=== PATIENT | male | born 1995 | race Native Hawaiian/Other Pacific Islander ===

== ENCOUNTER 2021-08-07 10:24 | Emergency (ER) | payer OTHER ==
[2021-08-07 10:35] VITALS: BP 146/98
--- NOTE | 2021-08-07 11:59 | ED Physician Documentation ---
PD HPI PED ILLNESS - Stated complaint Stated Complaint: CONGESTION - Chief complaint Chief Complaint: Heent PD PAST MEDICAL HISTORY - Present Medications Home Medications: Ambulatory Orders Medication Instructions Recorded Confirmed No Known Home Medications 08/07/21 08/07/21 - Allergies Allergies/Adverse Reactions: Allergies Allergy/AdvReac Type Severity Reaction Status Date / Time No Known Drug Allergies Allergy Verified 08/07/21 10:32 - Social History Does the pt smoke?: No Smoking Status: Never smoker Results - Vitals Vitals: Vital Signs - 24 hr 08/07/21 10:32 Temperature 36.6 C Heart Rate 86 Respiratory 12 Rate Blood Pressure 146/98 H O2 Saturation 96 Oxygen O2 Source Room air
--- NOTE | 2021-08-07 12:13 | ED Physician Documentation ---
PD HPI URI - Stated complaint Stated Complaint: CONGESTION - Chief complaint Chief Complaint: Heent - Additional information Additional information: Patient is 26-year-old male presenting to the emergency department with cough, congestion ongoing x4 days. Denies chest pain, shortness of breath. Multiple sick contacts at home. Reports was tested for Covid last weekend which was negative. Review of Systems Ten Systems: 10 systems reviewed and negative Constitutional: denies: Fever Eyes: denies: Loss of vision Ears: denies: Loss of hearing Nose: denies: Rhinorrhea / runny nose Throat: denies: Dental pain / toothache Cardiac: denies: Chest pain / pressure Respiratory: reports: Cough. denies: Dyspnea GI: denies: Abdominal Pain, Nausea, Vomiting PD PAST MEDICAL HISTORY - Present Medications Home Medications: Ambulatory Orders Medication Instructions Recorded Confirmed Benzonatate [Tessalon] 200 mg PO TID PRN #30 cap 08/07/21 - Allergies Allergies/Adverse Reactions: Allergies Allergy/AdvReac Type Severity Reaction Status Date / Time No Known Drug Allergies Allergy Verified 08/07/21 10:32 - Social History Does the pt smoke?: No Smoking Status: Never smoker PD ED PE NORMAL - Vitals Vital signs reviewed: Yes - General General: Alert and oriented X 3 - HEENT HEENT: Atraumatic, PERRL - Neck Neck: Supple, no meningeal sign, No JVD - Cardiac Cardiac: RRR, No gallop - Respiratory Respiratory: No respiratory distress - Abdomen Abdomen: Normal bowel sounds, Soft - Male Male : Deferred - Rectal Rectal: Deferred - Back Back: No CVA TTP - Extremities Extremities: No deformity - Neuro Neuro: Alert and oriented X 3 Results - Vitals Vitals: Vital Signs - 24 hr 08/07/21 10:32 Temperature 36.6 C Heart Rate 86 Respiratory 12 Rate Blood Pressure 146/98 H O2 Saturation 96 Oxygen O2 Source Room air PD MEDICAL DECISION MAKING - ED course ED course: Patient is otherwise healthy 26-year-old male presenting to the emergency department with cough and congestion for the last few days. Multiple sick contacts with multiple family members having similar symptoms. Afebrile, hemodynamically stable, clear aeration in all lung lopez. Patient reported using Mucinex at home with some symptomatic relief. Will swab for Covid on outpatient basis and prescribe a course of Tessalon to help with the patient's cough. Encourage careful follow-up with primary care or return to the emergency department for new or worsening symptoms. Departure - Departure Disposition: 01 Home, Self Care Clinical Impression: URI (upper respiratory infection) Condition: Good Instructions: ED URI Viral Prescriptions: Benzonatate [Tessalon] 200 mg PO TID PRN #30 cap PRN Reason: Cough Comments: Thank You for allowing us to care for you today at [facility]. Prescriptions were sent to [facility] in [place] The Viral swab taken today will take a few days to come back. Please continue to follow-up with your primary care doctor as needed. If it anytime you have any new or worsening symptoms please not hesitate to return to the emergency department. Discharge Date/Time: 08/07/21 12:34
== END 2021-08-07 12:34 | disposition home or self-care (01) ==
LOC: ED 10:24
DX: J06.9 Acute upper respiratory infection, unspecified (principal); Z20.822 Contact with and (suspected) exposure to COVID-19
CPT/HCPCS: 99283

== ENCOUNTER 2022-09-11 22:12 | Emergency (ER) | payer OTHER ==
[2022-09-11 22:23] VITALS: BP 135/87
--- NOTE | 2022-09-12 01:30 | ED Physician Documentation ---
PD HPI HEENT - Stated complaint Stated Complaint: COUGH/SINUS PRESSURE - Chief complaint Chief Complaint: Heent - History obtained from History obtained from: Patient - Additional information Additional information: Patient comes to the emergency department chief complaint of sinus pressure. He states he feels like he has had a cold for the last several days and just wants to get better. He does not know if he has sinusitis or not. He denies any fevers or chills. No GI symptoms. He has some facial pressure but not pain. He has some mild drainage from his nose both sides which is ranging anywhere from clear to yellow. Review of Systems Constitutional: reports: Reviewed and negative Eyes: reports: Reviewed and negative Ears: reports: Reviewed and negative Nose: reports: Rhinorrhea / runny nose, Congestion Throat: reports: Reviewed and negative Cardiac: reports: Reviewed and negative Respiratory: reports: Reviewed and negative GI: reports: Reviewed and negative : reports: Reviewed and negative Skin: reports: Reviewed and negative Musculoskeletal: reports: Reviewed and negative Neurologic: reports: Reviewed and negative Psychiatric: reports: Reviewed and negative Endocrine: reports: Reviewed and negative Immunocompromised: reports: Reviewed and negative PD PAST MEDICAL HISTORY - Past Medical History Past Medical History: Yes Cardiovascular: Hypertension Respiratory: None Neuro: None Endocrine/Autoimmune: None GI: None : None HEENT: None Psych: None Musculoskeletal: None Derm: None - Past Surgical History Past Surgical History: No - Present Medications Home Medications: Ambulatory Orders Medication Instructions Recorded Confirmed Lisinopril [Zestril] 20 mg ORAL DAILY 06/08/22 09/11/22 Pseudoephedrine HCl 120 mg PO Q24H PRN #12 tab 09/12/22 [Pseudoephedrine ER] - Allergies Allergies/Adverse Reactions: Allergies Allergy/AdvReac Type Severity Reaction Status Date / Time No Known Drug Allergies Allergy Verified 09/11/22 22:21 - Social History Does the pt smoke?: No Smoking Status: Never smoker Does the pt drink ETOH?: No Does the pt have substance abuse?: No - Immunizations Immunizations are current?: Yes - POLST Patient has POLST: No PD ED PE NORMAL - Vitals Vital signs reviewed: Yes - General General: Alert and oriented X 3, No acute distress, Well developed/nourished - HEENT HEENT: Atraumatic, PERRL, EOMI, Moist mucous membranes - Neck Neck: Supple, no meningeal sign - Cardiac Cardiac: RRR, No murmur, Strong equal pulses - Respiratory Respiratory: No respiratory distress, Clear bilaterally - Abdomen Abdomen: Soft, Non tender, Non distended - Derm Derm: Normal color, Warm and dry, No rash - Extremities Extremities: No deformity - Neuro Neuro: Alert and oriented X 3 - Psych Psych: Normal mood, Normal affect Results - Vitals Vitals: Oxygen O2 Source Room air PD Medical Decision Making - ED course Complexity details: considered differential, d/w patient ED course: I discussed with the patient that his symptoms are most consistent with a viral illness. We have discussed symptomatic management at this at home, as well as the usual indications for return. There is no indication for emergent intervention or work-up. Departure - Departure Disposition: 01 Home, Self Care Clinical Impression: Upper respiratory infection Qualifiers: URI type: unspecified viral URI Qualified Code(s): J06.9 - Acute upper respiratory infection, unspecified Condition: Stable Instructions: ED URI Viral Prescriptions: Pseudoephedrine HCl [Pseudoephedrine ER] 120 mg PO Q24H PRN #12 tab PRN Reason: sinus congestion Comments: A prescription for decongestant has been electronically transmitted to the [facility] pharmacy in [place]. You may also get some azep-isu-eosrxnk Afrin (generic: oxymetazoline), which you may take in the evening before bed to help clear your nose and sinuses out so you can get a better night sleep. You should not use this for more than 3 to 4 days, due to rebound effect. Your symptoms are most likely caused by one of the many viruses that are going around right now, and are causing congestion, cough, and sometimes fever. In general, these illnesses last anywhere from a few days to a week or two, but will go away on their own without antibiotics or other specific intervention. Be sure you are getting rest is much as possible and plenty of fluids to drink. Discharge Date/Time: 09/12/22 01:33
== END 2022-09-12 01:33 | disposition home or self-care (01) ==
LOC: ED 22:12
DX: J06.9 Acute upper respiratory infection, unspecified (principal)
CPT/HCPCS: 99282; 99283

== ENCOUNTER 2023-09-19 13:43 | Emergency (ER) | payer OTHER ==
[2023-09-19 13:55] VITALS: BP 120/88; O2SAT 100
--- NOTE | 2023-09-19 13:56 | ED Physician Documentation ---
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 He woke on with moderate left knee pain and unable to extend it at all. There is no specific injury. PD PAST MEDICAL HISTORY - Past Medical History Past Medical History: Yes Cardiovascular: Hypertension Respiratory: None Neuro: None Endocrine/Autoimmune: None GI: None : None HEENT: None Psych: None Musculoskeletal: None Derm: None - Past Surgical History Past Surgical History: Yes General: Appendectomy - Present Medications Home Medications: Ambulatory Orders Medication Instructions Recorded Confirmed Lisinopril [Zestril] 20 mg ORAL DAILY 06/08/22 09/11/22 Pseudoephedrine HCl 120 mg PO Q24H PRN #12 tab 09/12/22 [Pseudoephedrine ER] Ibuprofen [Motrin] 800 mg PO Q8H PRN #30 tablet 09/19/23 - Allergies Allergies/Adverse Reactions: Allergies Allergy/AdvReac Type Severity Reaction Status Date / Time No Known Drug Allergies Allergy Verified 09/19/23 13:45 - Social History Does the pt smoke?: No Smoking Status: Never smoker Does the pt drink ETOH?: No Does the pt have substance abuse?: No - Immunizations Immunizations are current?: Yes - POLST Patient has POLST: No PD ED PE NORMAL - Vitals Vital signs reviewed: Yes - General General: Alert and oriented X 3, No acute distress - Extremities Extremities: Other (There is a moderate effusion of the left knee. He is tender over the medial joint line but not elsewhere. Has pain with MCL testing but no laxity. No other ligamentous testing pain or laxity. Negative grind testing.) - Neuro Neuro: Alert and oriented X 3, Normal speech Results - Vitals Vitals: Vital Signs - 24 hr 09/19/23 13:45 Temperature 36.8 C Heart Rate 82 Respiratory 16 Rate Blood Pressure 120/88 H O2 Saturation 100 Oxygen O2 Source Room air - Rads (name of study) 4 view x-ray of the left knee was unremarkable. Relevant Findings:: Final report received, EMP independent interpretation of test PD Medical Decision Making - ED course ED course: 28-year-old gent with overuse injury of the left knee, exam consistent with probably an MCL tendinosis and there is a small effusion on exam although not seen on x-ray. Advised NSAIDs and follow-up with PCM. Departure - Departure Disposition: 01 Home, Self Care Clinical Impression: Effusion, left knee Strain of left knee Qualifiers: Encounter type: initial encounter Qualified Code(s): S86.912A - Strain of unspecified muscle(s) and tendon(s) at lower leg level, left leg, initial encounter Condition: Good Record reviewed to determine appropriate education?: Yes Instructions: ED Effusion Knee Prescriptions: Ibuprofen [Motrin] 800 mg PO Q8H PRN #30 tablet PRN Reason: PAIN &/OR FEVER Comments: You were seen today for knee pain, seems like an overuse injury where you inflamed to the medial collateral ligament and you do have a small effusion (fluid in the knee joint). I wrote you for an anti-inflammatory and you should be on limited duty with limited walking this week. [place]. Return for new or worsening symptoms. Forms: Activity restrictions Discharge Date/Time: 09/19/23 14:13
--- NOTE | 2023-09-19 14:17 | XRAY Report ---
PROCEDURE: Knee 4+V LT INDICATIONS: Trauma TECHNIQUE: 3 views of the knee(s) were acquired. COMPARISON: None. FINDINGS: Bones: No fractures or dislocations. No suspicious bony lesions. Soft tissues: No knee joint effusion. No suspicious soft tissue calcifications or masses. IMPRESSION: No visualized acute fracture or dislocation. However, occult injury cannot be excluded. Recommend magdalena rt interval imaging follow-up in 7-10 days as clinically indicated for additional evaluation. Reviewed by: Hanna Quintero MD on 09/19/2023 2:16 PM PST Approved by: Hanna Quintero MD on 09/19/2023 2:16 PM PST Station ID: [id number]
== END 2023-09-19 14:13 | disposition home or self-care (01) ==
LOC: ED 13:43
DX: S86.912A Strain of unspecified muscle(s) and tendon(s) at lower leg level, left leg, initial encounter (principal); X58.XXXA Exposure to other specified factors, initial encounter; I10 Essential (primary) hypertension
CPT/HCPCS: 99283; 99284

== ENCOUNTER 2023-10-27 15:48 | Emergency (ER) | payer OTHER ==
[2023-10-27 17:09] VITALS: BP 141/98; O2SAT 98
[2023-10-27 17:37] LABS: RAPID STREP SCREEN Negative (Negative)
[2023-10-27 18:46] LABS: B. PARAPERTUSSIS- RESP PCR PAN NOT DETECTED; B. PERTUSSIS- RESP PCR PANEL NOT DETECTED; C. PNEUMONIAE- RESP PCR PANEL NOT DETECTED; CORONAVIRUS 229E-RESP PCR NOT DETECTED; CORONAVIRUS HKU1-RESP PCR NOT DETECTED; CORONAVIRUS NL63-RESP PCR NOT DETECTED; CORONAVIRUS OC43-RESP PCR NOT DETECTED; HUMAN METAPNEUMOVIRUS NOT DETECTED; INFLUENZA A- RESP PCR PANEL NOT DETECTED; INFLUENZA B - RESP PCR PANEL NOT DETECTED; M. PNEUMONIAE- RESP PCR PANEL NOT DETECTED; PARAINFLUENZA VIRUS 1 NOT DETECTED; PARAINFLUENZA VIRUS 2 NOT DETECTED; PARAINFLUENZA VIRUS 3 NOT DETECTED; PARAINFLUENZA VIRUS 4 NOT DETECTED; RHINOVIRUS/ENTEROVIRUS NOT DETECTED; RSV- RESP PCR PANEL NOT DETECTED; SARS-CoV-2 -RESP PCR PANEL NOT DETECTED
--- NOTE | 2023-10-27 19:09 | XRAY Report ---
PROCEDURE: Chest 2V INDICATIONS: cough TECHNIQUE: 2 views of the chest were obtained. COMPARISON: None. FINDINGS: Surgical changes and devices: None. Lungs and pleura: No pleural effusions or pneumothorax. Lungs are clear. Mediastinum: Mediastinal contours appear normal. Heart size is normal. Bones and chest wall: No suspicious bony lesions. Overlying soft tissues appear unremarkable. IMPRESSION: Normal two-view chest x-ray Reviewed by: Primo Reyna MD on 10/27/2023 6:07 PM [facility] Approved by: Primo Reyna MD on 10/27/2023 6:07 PM [facility] Station ID: [id number]
--- NOTE | 2023-10-27 19:43 | ED Physician Documentation ---
History of Present Illness - Stated complaint Stated Complaint: COUGH/SORE THROAT - Chief complaint Chief Complaint: General - Additonal information Additional information: 28-year-old male presents emergency department for 2 days of upper respiratory infection symptoms. Patient reports that he has a sore throat and cough with runny nose. He is up-to-date with all vaccines. No nausea vomiting diarrhea. Unsure if he is having fevers or chills. PD PAST MEDICAL HISTORY - Past Medical History Past Medical History: Yes Cardiovascular: Hypertension Respiratory: None Neuro: None Endocrine/Autoimmune: None GI: None : None HEENT: None Psych: None Musculoskeletal: None Derm: None - Past Surgical History Past Surgical History: Yes General: Appendectomy - Present Medications Home Medications: Ambulatory Orders Medication Instructions Recorded Confirmed Lisinopril [Zestril] 20 mg ORAL DAILY 06/08/22 09/11/22 Pseudoephedrine HCl 120 mg PO Q24H PRN #12 tab 09/12/22 [Pseudoephedrine ER] Ibuprofen [Motrin] 800 mg PO Q8H PRN #30 tablet 09/19/23 - Allergies Allergies/Adverse Reactions: Allergies Allergy/AdvReac Type Severity Reaction Status Date / Time No Known Drug Allergies Allergy Verified 10/27/23 16:58 - Social History Does the pt smoke?: No Smoking Status: Never smoker Does the pt drink ETOH?: No Does the pt have substance abuse?: No - Immunizations Immunizations are current?: Yes - POLST Patient has POLST: No PD ED PE NORMAL - Vitals Vital signs reviewed: Yes - General General: Alert and oriented X 3, No acute distress, Well developed/nourished - HEENT HEENT: Atraumatic, PERRL, Ears normal, Moist mucous membranes, Pharynx benign - Cardiac Cardiac: RRR - Respiratory Respiratory: No respiratory distress, Clear bilaterally Results - Vitals Vitals: Vital Signs - 24 hr 10/27/23 16:59 Temperature 36.3 C L Heart Rate 81 Respiratory 20 Rate Blood Pressure 141/98 H O2 Saturation 98 Oxygen O2 Source Room air - Labs Labs: Laboratory Tests 10/27/23 10/27/23 17:05 17:05 Nasal Adenovirus (PCR) NOT DETECTED Nasal B. parapertussis DNA (PCR) NOT DETECTED Nasal Coronavir 229E PCR NOT DETECTED Nasal Coronavir HKU1 PCR NOT DETECTED Nasal Coronavir NL63 PCR NOT DETECTED Nasal Coronavir OC43 PCR NOT DETECTED Nasal Enterovir/Rhinovir PCR NOT DETECTED Nasal Influenza B PCR NOT DETECTED Nasal Influenza A PCR NOT DETECTED Nasal Parainfluen 1 PCR NOT DETECTED Nasal Parainfluen 2 PCR NOT DETECTED Nasal Parainfluen 3 PCR NOT DETECTED Nasal Parainfluen 4 PCR NOT DETECTED Nasal RSV (PCR) NOT DETECTED Nasal B.pertussis DNA PCR NOT DETECTED Nasal C.pneumoniae (PCR) NOT DETECTED Usman Human Metapneumo PCR NOT DETECTED Nasal M.pneumoniae (PCR) NOT DETECTED Nasal SARS-CoV-2 (PCR) NOT DETECTED Group A Strep Rapid Negative - Rads (name of study) Chest x-ray Relevant Findings:: Final report received, EMP independent interpretation of test, Other (No cardiopulmonary abnormalities) PD Medical Decision Making - ED course ED course: This patient presents with acute cough, most consistent with viral infection. Presentation not consistent with acute bacterial pneumonia, influenza, asthma, transient airway hyperresponsiveness. Presentation not consistent with chronic causes of cough (including GERD, asthma, postnasal discharge, medication side effect, CHF, lung cancer or mass). Viral swab was complete and was negative. Chest x-ray was also negative for any acute cardiopulmonary abnormalities. Patient was told to continue with supportive care. He was given dexamethasone's for sore throat his pharynx is overall benign. Patient told to alternate between Tylenol and ibuprofen for any pain discomfort and told to follow-up with primary care provider and return precautions given. Departure - Departure Disposition: 01 Home, Self Care Clinical Impression: URI (upper respiratory infection) Qualifiers: URI type: unspecified viral URI Qualified Code(s): J06.9 - Acute upper respiratory infection, unspecified Condition: Stable Instructions: ED URI Viral Comments: Thank you for trusting us with your care. We have given you some liquid ibuprofen here in the emergency department you can take 600 mg of ibuprofen every 6 hours and 650 to 1000 mg of Tylenol every 8 hours. We have also given you some dexamethasone to help with your throat pain and swelling. Going home do start doing some salt water gargle rinses to the back of your throat to help with the throat pain and swelling you are experiencing as well as purchasing an [id number] Urmila pot to help with your congestion. Please come back to the emergency department if you are having worsening throat pain, difficulty breathing, or you are having fevers that are lasting longer than 5 days. Wishing you a speedy recovery. Forms: PCP List Discharge Date/Time: 10/27/23 20:01
[2023-10-27] MEDS: IBUPROFEN 200 MG/10 ML UDC PO STA (19:57)
[2023-10-27] MEDS: DEXAMETHASONE 10 MG/ML VIAL PO STA (19:57)
[2023-10-27] MEDS: CHERRY SYRUP 10 ML UDC PO ONE (19:57)
== END 2023-10-27 20:01 | disposition home or self-care (01) ==
LOC: ED 15:48
DX: J06.9 Acute upper respiratory infection, unspecified (principal); B97.89 Other viral agents as the cause of diseases classified elsewhere; I10 Essential (primary) hypertension
CPT/HCPCS: 71046; 87070; 87430; 87633; 99283; 99284; A9270